=== PATIENT | female | born 1955 | race Caucasian/White ===

== ENCOUNTER 2021-07-01 19:33 | Emergency (ER) | payer OTHER ==
[~2021-07-01] VITALS: Ht 162.5 cm; Wt 64.4 kg
[2021-07-01] MEDS ORDERED: SUBOXONE 4 MG-1 EACH SL (20:04)
== END 2021-07-01 22:47 | disposition left against medical advice (07) ==
LOC: ED 19:33
DX: M79.605 Pain in left leg (principal); Z79.899 Other long term (current) drug therapy